=== PATIENT | male | born 1960 | race Caucasian/White ===

== ENCOUNTER 2020-09-28 09:22 | Emergency (ER) | payer OTHER ==
[~2020-09-28] VITALS: Ht 165.1 cm; Wt 65.8 kg
[2020-09-28 09:50] LABS: ABSOLUTE BASOPHILS 0.1 thou/uL (0.0-0.2); ABSOLUTE LYMPHOCYTES 0.9 thou/uL (0.8-5.3); ABSOLUTE MONOCYTES 0.6 thou/uL (0.0-1.2); ABSOLUTE NEUTROPHILS 6.4 thou/uL (1.6-8.1); BASOPHILS 0.8 %; EOSINOPHILS 0.1 %; HEMATOCRIT 40.8 % (42.0-52.0); HEMOGLOBIN 13.7 gm/dL (14.0-18.0); LYMPHOCYTES 10.8 %; MCH 30.9 pg (26.0-34.0); MCHC 33.6 g/dL (28.0-37.0); MONOCYTES 7.3 %; MPV 7.4 fl. (7.2-11.1); NUCLEATED RBCS 0 /100WBC; PLATELET COUNT* 364 thou/uL (150-400); RBC 4.44 mil/uL (4.50-6.00); RDW-CV 12.5 % (10.5-14.5); WBC 7.9 thou/uL (4.0-11.0)
--- NOTE | 2020-09-28 10:13 | EKG ---
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: : 1960 Requested By: Mihai Guzman Order Number: [id number] MD: River Conde Measurements Intervals [place] Rate: 90 P: 67 ME: 147 QRS: 60 QRSD: 77 T: 5 QT: 340 QTc: 416 Interpretive Statements Sinus rhythm 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
[2020-09-28 10:14] LABS: CREATININE 1.1 mg/dL (0.6-1.3); POTASSIUM 3.9 mmol/L (3.5-5.1)
[2020-09-28 10:25] LABS: ALBUMIN 3.7 g/dL (3.4-5.0); MAGNESIUM 2.1 mg/dL (1.8-2.4); TOTAL BILIRUBIN 0.8 mg/dL (<0.1-1.0)
[2020-09-28 12:39] VITALS: BP 109/72
== END 2020-09-28 12:39 | disposition home or self-care (01) ==
LOC: M.ERS 09:22
PROVIDERS: Family Medicine
DX: R07.89 Other chest pain (principal); Z87.891 Personal history of nicotine dependence